=== PATIENT | male | born 1985 | race Caucasian/White ===

== ENCOUNTER 2016-08-18 14:52 | Outpatient (CLI) | payer OTHER | END 2016-08-18 14:53 | disposition home or self-care (01) | LOC: EMS 14:52 | PROVIDERS: ATTEND Surgery | DX: S06.9X1A Unspecified intracranial injury with loss of consciousness of 30 minutes or less, initial encounter (principal); W31.89XA Contact with other specified machinery, initial encounter; Y99.0 Civilian activity done for income or pay | CPT/HCPCS: A0425; A0429 ==

== ENCOUNTER 2016-08-18 15:01 | Emergency (ER) | payer OTHER ==
--- NOTE | 2016-08-18 15:48 | ED Physician Documentation ---
PD HPI HEAD INJURY - Stated complaint Stated Complaint: HEAD INJURY - Chief complaint Chief Complaint: Trauma Hd/Nk - History obtained from History obtained from: Patient - History of Present Illness Mechanism of head injury: Blow Timing - onset: How many hours ago (1) Location of injury: Front Quality of pain: Dull Associated symptoms: LOC. No: Neck pain Similar symptoms before: Has not had sx before - Additional information Additional information: The patient is a 31-year-old male who presents with head injury. He was using a pounder when it caught on the top of the post and fell backwards hitting him on the head. He had brief loss of consciousness, and subsequent nausea, without vomiting. He was ambulatory after the incident. He denies any other injuries. The incident occurred about one hour prior to arrival. Tetanus status is unknown. Review of Systems Constitutional: denies: Fever Eyes: denies: Decreased vision Ears: denies: Tinnitus/ringing Nose: denies: Congestion Throat: denies: Sore throat Cardiac: denies: Chest pain / pressure Respiratory: denies: Dyspnea GI: reports: Nausea. denies: Vomiting Skin: reports: Laceration (s) (Scalp) Musculoskeletal: denies: Neck pain, Back pain, Extremity pain Neurologic: reports: Headache (mild), Head injury, LOC. denies: Focal weakness , Numbness PD PAST MEDICAL HISTORY - Past Medical History Past Medical History: Yes Other Past Medical History: left clavicle pain - Past Surgical History Past Surgical History: No - Present Medications Home Medications: Ambulatory Orders Medication Instructions Recorded Confirmed No Known Home Medications [No 08/18/16 08/18/16 Known Home Medications] - Allergies Allergies/Adverse Reactions: Allergies Allergy/AdvReac Type Severity Reaction Status Date / Time codeine AdvReac Nausea Verified 08/18/16 15:58 - Social History Does the pt smoke?: No Smoking Status: Never smoker Does the pt drink ETOH?: No Does the pt have substance abuse?: No - Immunizations Immunizations are current?: Yes Immunizations: TDAP >10years/unknown PD ED PE NORMAL - Vitals Vital signs reviewed: Yes (borderline hypertension i) - General General: Alert and oriented X 3, Well developed/nourished - HEENT HEENT: PERRL, EOMI, Ears normal, Pharynx benign, Other (There is a 1.5 cm superficial scalp laceration, with the wound edges well opposed. 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 Head CT reveals no intracranial abnormality. The wound was not sutured or stapled because that would not have improved clinical outcome. Treatment in the emergency department included administration of ibuprofen 800 mg orally, and tetanus booster. I discussed with him and his the expected course of healing, symptomatic treatment and outpatient follow-up, as well as potentially worrisome signs or symptoms that should prompt reevaluation in the emergency department. A labor and industries form was completed. Departure - Departure Disposition: 01 Home, Self Care Clinical Impression: Scalp contusion Qualifiers: Encounter type: initial encounter Qualified Code(s): S00.03XA - Contusion of scalp, initial encounter Condition: Stable Instructions: ED Head Injury Closed Comments: You can use Tylenol or ibuprofen if needed for discomfort. Keep the wound clean, wash it daily with soapy water. Followup with primary physician or return to the emergency department if you develop increasing headache, persistent vomiting, or otherwise worsening symptoms. Forms: Activity restrictions Discharge Date/Time: 08/18/16 17:02
[2016-08-18] MEDS ORDERED: TETANUS/DIPHTHERIA/PERTUSSIS 0.5 ML SYRINGE IM ONE ×2 (15:50→15:54)
--- NOTE | 2016-08-18 16:31 | CT Preliminary Report ---
Exam: CT Head W/O IMPRESSION: Negative head CT. [facility] SITE ID: [id number]
--- NOTE | 2016-08-18 16:33 | CT Report ---
EXAM: CT HEAD EXAM DATE: 08/18/2016 04:23 PM. CLINICAL HISTORY: Head injury with LOC. COMPARISON: None. TECHNIQUE: Multiaxial CT images were obtained from the foramen magnum to the vertex. IV contrast: Non e. Reformats: Coronal. In accordance with CT protocol optimization, one or more of the following dose reduction techniques w ere utilized for this exam: automated exposure control, adjustment of mA and/or KV based on patient s ize, or use of iterative reconstructive technique. FINDINGS: Parenchyma: No intraparenchymal hemorrhage. No evidence of mass, midline shift, or CT findings of inf arction. Olivo-white differentiation is distinct. Extraaxial Spaces: Normal for age. No subdural or epidural collections identified. Ventricles: Normal in size and position. Sinuses: Imaged paranasal sinuses, orbits, and mastoids show no significant abnormality. Bones: No evidence of fracture or calvarial defect. Other: None. IMPRESSION: Negative head CT. [facility] Referring Provider Line: [phone] SITE ID: [id number]
[2016-08-18] MEDS ORDERED: IBUPROFEN 800 MG TABLET PO STA (16:43)
[2016-08-18] MEDS ORDERED: IBUPROFEN 800 MG TABLET PO ONE (16:46)
[2016-08-18 17:02] VITALS: BP 135/87
== END 2016-08-18 17:02 | disposition home or self-care (01) ==
LOC: ED 15:01
DX: S00.03XA Contusion of scalp, initial encounter (principal); S01.01XA Laceration without foreign body of scalp, initial encounter; W20.8XXA Other cause of strike by thrown, projected or falling object, initial encounter; Z23 Encounter for immunization
CPT/HCPCS: 70450; 90471; 90715; 99283; 99284; A9270; 96372

== ENCOUNTER 2016-08-20 13:23 | Outpatient (CLI) | payer OTHER | END 2016-08-20 13:24 | disposition critical access hospital (66) | LOC: EMS 13:23 | PROVIDERS: ATTEND Surgery | DX: R42 Dizziness and giddiness (principal) ==

== ENCOUNTER 2016-08-20 14:18 | Emergency (ER) | payer OTHER ==
[2016-08-20 14:25] VITALS: BP 134/81
--- NOTE | 2016-08-20 14:56 | ED Physician Documentation ---
PD HPI HEAD INJURY - Stated complaint Stated Complaint: HEAD INJ X2DAY/NAUSEA - Chief complaint Chief Complaint: General - History obtained from History obtained from: Patient, Family - History of Present Illness Where head injury occurred: Work Timing - onset: How many days ago (2) Pain level max: 3 Pain level now: 1 Location of injury: Top Quality of pain: Throbbing, Aching Symptoms improve with: Rest Symptoms worsen with: Movement Contributing factors: No: Anticoagulated, Intoxicated Recently seen: Emergency Dept (2 days ago for concussion) - Additional information Additional information: Patient is a 31-year-old male who presents to the emergency department after being struck in the head by a knitting machine tender 2 days ago at work. Today he felt lightheaded and nauseated. Came for repeat evaluation. Negative head CT 2 days ago. Has had mild intermittent headaches. No vomiting. No numbness or tingling. Has not followed up with his PCP yet. Symptoms are better with rest and worse with movement. Review of Systems Ten Systems: 10 systems reviewed and negative Constitutional: denies: Fever, Chills Eyes: denies: Loss of vision, Decreased vision, Photophobia Ears: denies: Ear pain Nose: denies: Rhinorrhea / runny nose, Congestion Throat: denies: Sore throat GI: denies: Abdominal Pain, Nausea, Vomiting Skin: denies: Rash Musculoskeletal: denies: Neck pain, Back pain Neurologic: denies: Headache PD PAST MEDICAL HISTORY - Past Medical History Past Medical History: No - Past Surgical History Past Surgical History: No - Present Medications Home Medications: Ambulatory Orders Medication Instructions Recorded Confirmed No Known Home Medications [No 08/18/16 08/20/16 Known Home Medications] - Allergies Allergies/Adverse Reactions: Allergies Allergy/AdvReac Type Severity Reaction Status Date / Time codeine AdvReac Nausea Verified 08/20/16 14:24 - Social History Does the pt smoke?: No Smoking Status: Never smoker Does the pt drink ETOH?: No Does the pt have substance abuse?: No - Immunizations Immunizations are current?: Yes Immunizations: TDAP >10years/unknown PD ED PE NORMAL - Vitals Vital signs reviewed: Yes - General General: Alert and oriented X 3, No acute distress - HEENT HEENT: PERRL, EOMI, Ears normal, Moist mucous membranes, Pharynx benign, Other ( Well-healing laceration to the top of the head. No signs of infection. No scalp tenderness. No hematomas.) - Neck Neck: Supple, no meningeal sign, No bony TTP, Other (Full range of motion without pain) - Cardiac Cardiac: RRR - Respiratory Respiratory: No respiratory distress, Clear bilaterally - Abdomen Abdomen: Soft, Non tender, Non distended - Back Back: No spinal TTP - Derm Derm: Warm and dry - Extremities Extremities: No tenderness to palpate - Neuro Neuro: Alert and oriented X 3, blind cleaner 2-12 intact, No motor deficit, No sensory deficit, Normal speech - Psych Psych: Normal mood, Normal affect Results - Vitals Vitals: Vital Signs - 24 hr 08/20/16 14:22 Temperature 36.5 C Heart Rate 67 Respiratory 12 Rate Blood Pressure 134/81 H O2 Saturation 100 Oxygen O2 Source Room air PD MEDICAL DECISION MAKING - ED course Complexity details: reviewed old records, considered differential, d/w patient, d/w family ED course: Patient is a 31-year-old male who presents to the emergency department with symptoms of postconcussive syndrome. He is very well-appearing, nontoxic. Normal neurological examination. Normal head CT 2 days ago, will not repeat this today. Ambulating without difficulty. Patient and family counseled regarding signs and symptoms for which I believe and urgent re-evaluation would be necessary. Patient with good understanding of and agreement to plan and is comfortable going home at this time This document was made in part using voice recognition software. While efforts are made to proofread this document, sound alike and grammatical errors may occur. No bony tenderness in the neck. Departure - Departure Disposition: 01 Home, Self Care Clinical Impression: Concussion Qualifiers: Encounter type: initial encounter Loss of consciousness presence/duration: with LOC of 30 min or less Qualified Code(s): S06.0X1A - Concussion with loss of consciousness of 30 minutes or less, initial encounter Condition: Good Instructions: ED Concussion Follow-Up: your,doctor in 1 week [Other] Comments: Return if you worsen. You may continue to have headaches and nausea for the next few days to weeks. Your blood pressure was elevated today on check in to the emergency department. This does not mean that you have hypertension, it is a common phenomenon to check into the emergency department and have elevated blood pressure. I recommend that you see your primary care physician within the week to have it rechecked when you're feeling better. Forms: Activity restrictions Discharge Date/Time: 08/20/16 15:15
== END 2016-08-20 15:15 | disposition home or self-care (01) ==
LOC: ED 14:18
DX: S06.0X1A Concussion with loss of consciousness of 30 minutes or less, initial encounter (principal); W22.8XXA Striking against or struck by other objects, initial encounter; Y99.0 Civilian activity done for income or pay; R03.0 Elevated blood-pressure reading, without diagnosis of hypertension
CPT/HCPCS: 99283